=== PATIENT | female | born 1980 | race Hispanic/Latino ===

== ENCOUNTER 2017-03-30 15:28 | Inpatient (IN) | payer OTHER ==
[2017-03-30] MEDS ORDERED: HYDROmorphone 0.5 MG/0.5 ML SYRINGE ONE ×2 (15:44→15:45)
[2017-03-30] MEDS ORDERED: Dextrose 50% Abboject 50 ML SYRINGE SLOW IVP PRN (15:51)
[2017-03-30] MEDS ORDERED: Dextrose 5% in Water 1,000 ML IV PRN (15:51)
[2017-03-30] MEDS ORDERED: Adacel (T-DAP) 0.5 ML VIAL ONE (15:56)
[2017-03-30] MEDS ORDERED: diphenhydrAMINE 50 MG/ML VIAL IM PRN (15:57)
[2017-03-30] MEDS ORDERED: Promethazine HCl 25 MG/ML VIAL IM PRN (15:57)
[2017-03-30] MEDS ORDERED: diphenhydrAMINE 50 MG/ML VIAL IVP PRN (15:57)
[2017-03-30] MEDS ORDERED: HYDROmorphone 10 mg/100 ml CADD IVPB PRN (15:57)
[2017-03-30] MEDS ORDERED: diphenhydrAMINE 25 MG CAP PO PRN (15:57)
[2017-03-30] MEDS ORDERED: Naloxone HCl 0.4 mg/ml Vial IV PRN (15:57)
[2017-03-30] MEDS ORDERED: Ondansetron HCl/PF 4 MG/2 ML Vial IVP PRN (15:57)
[2017-03-30] MEDS ORDERED: Silver Sulfadiazine 1% Cream 50 GM JAR ONE (16:00)
[2017-03-30] MEDS ORDERED: Communication Order-Pharmacy FS SCH (16:00)
[2017-03-30 17:25] VITALS: BMI 29.4
--- NOTE | 2017-03-30 18:00 | HP ---
DATE OF ADMISSION: 03/30/2017 ADMITTING PHYSICIAN: Dr. Everette Tse. CHIEF COMPLAINT: Evaluation of grease cohen. HISTORY OF PRESENT ILLNESS: The patient is a 36-year-old female, 28 weeks , , who presented to the ED today suffering from cohen to her hands , abdomen, groin and right lower extremity. 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 She denies any other injury. She was taken by EMS to the [place] ED and given morphine and Zofran en route. Currently, her pain is 4/10. It is worse with movement and relieved by nothing. ER PROCEDURES: Prior to arrival, she was given 200 mL of lactated Ringer's as well as 500 mL of normal saline. Upon arrival, she was placed on a team assembly line machine operator. L&D was at the bedside to monitor both the patient and the baby. heart tones were monitored and showed no signs of distress. Total intake and output was 1000 mL input, output 0 mL PAST MEDICAL HISTORY: Significant for controlled asthma as well as heart flutter. ALLERGIES: She has no known drug allergies. FAMILY HISTORY: Father of pancreatic cancer. Mother has no significant past medical history. Brother and sister both have hypertension. STATUS: She is , all vaginal deliveries. No prior complications. No preeclampsia or eclampsia. She sees Dr. Willis here in [facility]. PAST SURGICAL HISTORY: She has had a left oophorectomy. She has also had cosmetic lip implants. SOCIAL HISTORY: She denies alcohol use. She denies smoking. She denies drug use. REVIEW OF SYSTEMS: Ten-point review of systems is negative except as mentioned in the HPI and past medical history. PHYSICAL EXAMINATION: VITAL SIGNS: Blood pressure 152/101, pulse 99, respirations 20, temperature 98.2, O2 sat 100% on room air. Repeat blood pressure 139/97. GENERAL: Adult male, who appears his stated age, in no acute distress. She appears nontoxic and not to be in pain. HEAD: She is atraumatic, normocephalic. EYES: PERRLA, EOMI. ENT: Ears: Atraumatic. Nose: Nares patent, free of discharge. Mouth: Oropharynx is pink and moist. NECK: Her neck is supple. There is no tracheal deviation. RESPIRATORY: Her breath sounds are clear to auscultation bilaterally with normal effort. CARDIOVASCULAR: She has a regular rate and rhythm, normal S1 and S2. Distal pulses 2+ bilaterally. ABDOMEN: Her abdomen appears normal for this stage of . She has an erythematous area above the umbilicus about 10 cm x 5 cm with a 1 cm tense bulla. She has no other abdominal abnormalities. heart monitor is in place. MUSCULOSKELETAL: The patient is neurovascularly intact x4 and moving all extremities. SKIN: She has multiple tense bullae across the palmar and dorsal surfaces of her hands bilaterally with an estimated surface area of 1%, combined. There is a 10 cm x 5 cm area of erythema with a single tense balloon on her abdomen as mentioned above. Her distal right lower extremity anteriorly has multiple bullae and vesicles with an estimated surface area of 7%. There are no full thickness cohen apparent. NEUROLOGIC: She has no focal deficits. Her cranial nerves II-XII are intact. Her Amy coma scale is 15. PSYCHIATRIC: She has normal mood and affect. MONITORING: heart tones are 135. Positive for movement and no signs of distress. ASSESSMENT: Partial thickness second-degree cohen covering approximately 8% of body surface area. PLAN: 1. The patient will be admitted to the [facility] for wound care and pain control. 2. Monitor fluids and electrolytes and replace as needed. 3. Monitor for signs of distress. This patient was seen and examined along with Dr. Everette Tse who agrees with the assessment and plan. [facility]ENTER[facility]onzalez
[2017-03-30] MEDS: HYDROcodone/Acetaminophen 10/325 mg Tablet PO SCH (18:18)
--- NOTE | 2017-03-30 22:40 | PRG ---
DATE OF SERVICE: 03/30/2017 SUBJECTIVE: This is a 36-year-old female, admitted earlier today for second-degree burn. Upon my ev aluation, the patient states her pain is better controlled and only having complaints of itching. OBJECTIVE: VITAL SIGNS: Reviewed and stable. The patient is resting in bed, in no acute distress. SKIN: Wounds are covered with Silvadene cream. CHEST: Breathing is nonlabored. ASSESSMENT AND PLAN: As documented in the daily progress note. Continue care as ordered. Continue to monitor. Patient may have Benadryl for itching.
--- NOTE | 2017-03-31 00:43 | CON ---
DATE OF CONSULTATION: 03/30/2017 ADMITTING PHYSICIAN: Everette Tse D.O. CONSULTING PHYSICIAN: Lon Shoemaker M.D., for [facility] Obstetric Hospitalist. REASON FOR CONSULTATION: with second-degree cohen. HISTORY OF PRESENT ILLNESS: Ms. Lety Fritz presented at approximately 15:30 to the emergency room at [facility] with Trauma Service activation secondary to second-degree cohen on her abdomen an d leg, status post grease splash with cooking. She was noted to be 28 weeks by history. Sh e denied contractions, vaginal bleeding, rupture of membranes and reported of active fetus. LOGGING WORKER HISTORY: The patient sees Dr. Kal Willis at [facility] for her pregnanc ies. She is a G4, P3 with an KASSIDY of 06/18/2017, placing her 28 weeks' gestation. She has had 3 prev ious spontaneous vaginal deliveries without complications. No history of labor. She reports she is blood type A positive. She reports that this is a male fetus. The patient was scheduled to take [address] Willis's office this week. PAST MEDICAL HISTORY: None. PAST SURGICAL HISTORY: Left salpingo-oophorectomy for dermoid with torsion. ALLERGIES: None. MEDICATIONS: Prior to admission medications include vitamins and Diclegis. SOCIAL HISTORY: Denies tobacco, alcohol or drug use. FAMILY HISTORY: Noncontributory. REVIEW OF SYSTEMS: Noncontributory. PHYSICAL EXAMINATION: GENERAL: female, in mild distress. VITAL SIGNS: Temperature 98.2, pulse 79, respirations 20 and blood pressure 121/77. HEENT: Within normal limits. LUNGS: Clear to auscultation bilaterally. HEART: Regular rate and rhythm. ABDOMEN: Soft and nontender with a fundal height of 20 cm. FHTs are 130s to 150s. PELVIC: Deferred. SKIN: The patient has second-degree cohen on her left chest, right wrist, right lower extremity and left wrist. Calculated body percent is 8% of second-degree cohen, now with Silvadene applied. IMAGING DATA: Bedside ultrasound in the ER revealed FHTs in the 130s to 140s, cephalic presentation, posterior fundal placenta, no gross abnormalities noted. Approximately, 20-minute strip was obtaine d in the ER, which was reactive without decelerations. IMPRESSION: Second-degree cohen on less than 10% of the body, incidental finding of late second trim isra . PLAN: We will continue as a technical marketing consultant with Dr. Tse's Trauma Service. I have discussed with the felisa ochoa appropriate analgesics and anti-infectives if necessary. The patient will continue on Dilaudi d INFORMATION WRITER with p.o. Tylenol as needed with Silvadene applied to cohen.
[2017-03-31] MEDS: HYDROcodone/Acetaminophen 10/325 mg Tablet PO SCH ×2 (05:51→07:24)
[2017-03-31 06:51] LABS: Anion Gap 8 mmol/L (10-20); BUN (Urea Nitrogen) 6 mg/dL (7.0-18.7); Calc. Creatinine Clearance 176 mL/min (70-130); Calcium 8.4 mg/dL (7.8-10.44); Carbon Dioxide 24 mmol/L (22-29); Chloride 106 mmol/L (98-107); Estimated GFR-MDRD Greater than 90; Glucose 81 mg/dL (70-105); Potassium 3.7 mmol/L (3.5-5.1); Sodium 134 mmol/L (136-145)
[2017-03-31] MEDS ORDERED: Silver Sulfadiazine 1% Cream 50 GM TUBE TP SCH (09:00)
[2017-03-31] MEDS ORDERED: HYDROcodone/Acetaminophen 10/325 mg Tablet PO PRN ×2 (10:31)
[2017-03-31] MEDS ORDERED: Acetaminophen 500 MG TAB PO SCH (14:45)
[2017-03-31 14:59] VITALS: BP 102/56; TEMP 98.4
--- NOTE | 2017-03-31 14:59 | PRG ---
DATE OF SERVICE: 03/31/2017 TIME OF SERVICE: 0710 SUBJECTIVE: The patient is resting comfortably. She expresses anxiety about pain control after disc harge. She reports an active fetus. She denies contractions. OBJECTIVE: Patient's vital signs are stable. She is afebrile. FHTs are 150s. No palpable contract ions are noted. The patient's cohen are covered in Silvadene. Bullous changes are noted in the burn s on her lower extremity. IMPRESSION: 28 weeks gestation, status post second-degree cohen from grease splatter. PLAN: Continue to follow alongside with Trauma Service. I do not anticipate any impact on the pregn selam. Special consideration only needs to be held for analgesics and the avoidance of nonsteroidals and antibiotics if they become necessary in the avoidance of fluoroquinolones. The patient will need to keep her scheduled followup with Dr. Kal Willis after discharge.
--- NOTE | 2017-03-31 23:08 | DIS ---
DATE OF ADMISSION: 03/30/2017 DATE OF DISCHARGE: 03/31/2017 ADMITTING PHYSICIAN: Dr. Everette Tse. DISCHARGING PHYSICIAN: Dr. Everette Tse. CHIEF COMPLAINT: Evaluation of grease cohen. HISTORY OF PRESENT ILLNESS: The patient is a 36-year-old female who is 28 weeks . She is without any prior complications of , all vaginal delivery. She presented to the ED yesterday, suffering second-degree cohen to her hands, abdomen, groin and right lower extremity, covering approximately 8% body surface area. While she is in the ED, she was placed on a poultry farm manager. L&D was at the bedside to monitor both the patient and the baby. heart tones were monitored without signs of distress. She was admitted by the Trauma Service and sent to the floor where she received pain control as well as a wound care consultation. She was transitioned off of LOCKSTITCHER this afternoon and put her on oral pain medication. Case management was able to set her up with an outpatient personnel security specialist. She was discharged in stable condition. DISCHARGE MEDICATIONS: 1. Silvadene cream 1 gram topical twice daily. 2. CitraNatal Assure combo pack, 1 package oral daily. 3. Doxylamine succinate/vitamin B6, 2 tablets oral at bedtime. 4. Tramadol 50 mg tablets, 1-2 tablets p.o. every 6 hours as needed. ACTIVITY ORDERS: Activity as tolerated. NOURISHMENT INSTRUCTIONS: Regular diet. THERAPY INSTRUCTIONS: Wound care. EQUIPMENT AND SUPPLIES: Wound care. FOLLOWUP CARE: The patient was instructed to make an appointment with [facility] outpatient wound care. Recommending 3 times a week for 2 weeks. The patient is also advised to follow up with her PCP, Dr. Kal Willis as needed. [facility]
== END 2017-03-31 18:30 | disposition home health service (06) | DRG 781 ==
LOC: ERS 15:28 → 3SW 15:51
PROVIDERS: ADMIT Surgery; ATTEND Surgery
DX: O26.893 Other specified pregnancy related conditions, third trimester (principal); T31.0 Burns involving less than 10% of body surface; Z3A.28 28 weeks gestation of pregnancy; T23.202A Burn of second degree of left hand, unspecified site, initial encounter; T21.22XA Burn of second degree of abdominal wall, initial encounter; T23.201A Burn of second degree of right hand, unspecified site, initial encounter; T24.201A Burn of second degree of unspecified site of right lower limb, except ankle and foot, initial encounter; X10.2XXA Contact with fats and cooking oils, initial encounter; Y92.89 Other specified places as the place of occurrence of the external cause
CPT/HCPCS: 36415; 59025; 80048; 90471; 90715; 96374; G0390; J1170; J1200; J2405

== ENCOUNTER 2017-04-10 10:39 | Outpatient (CLI) | payer OTHER ==
--- NOTE | 2017-04-10 17:34 | HP ---
DATE OF SERVICE: 04/10/2017 HISTORY OF PRESENT ILLNESS: Ms. Lety Fritz is a very pleasant 36-year-old who presents to [facility] for evaluation of second-degree cohen to the right lower extremity. The patient state s that the second-degree cohen of her right lower extremity are from hot oil from a fryer. The patie nt states that she suffered the second-degree cohen on 03/30/2017. The patient states that she was s een in the emergency department at [facility] for her cohen. She states that she presented to the emergency department at [facility] again yesterday and at this time, the burn of her right lower extremity was cleansed. She states that at the time of her v isit, she was also placed on a course of Keflex and referred to the Wound Center for further evaluati on and treatment. The patient states that she has been performing dressing changes of Silvadene for the second-degree burn of her right lower extremity. PAST MEDICAL HISTORY: 1. Asthma. 2. Arrhythmia. PAST SURGICAL HISTORY: Left salpingo-oophorectomy for dermoid with torsion. MEDICATIONS: 1. Diclegis. 2. Cephalexin. 3. Tramadol. ALLERGIES: No known diagnosed allergies. SOCIAL HISTORY: Negative for tobacco or ETOH use. FAMILY HISTORY: Significant for diabetes mellitus. The patient states that she has multiple relativ es on the maternal side of her family who were diagnosed with diabetes mellitus. REVIEW OF SYSTEMS: The patient has a gravid uterus with an intrauterine at 28 weeks. PHYSICAL EXAMINATION: VITAL SIGNS: Temperature 97.8, pulse 102, respirations 19, blood pressure 119/66. GENERAL: A 36-year-old female sitting on chair in examination room in no acute distress. HEENT: Normocephalic, atraumatic. NECK: No nuchal rigidity. CHEST: Clear to auscultation. CARDIOVASCULAR: Regular rate and rhythm. ABDOMEN: Gravid uterus. EXTREMITIES: Second-degree cohen of the right lower extremity are present. No burn wound cellulitis is appreciated. A dorsalis pedis pulse is palpable on the right. Edema and induration of the right lower leg are present on exam today. NEUROLOGIC: Grossly nonfocal. ASSESSMENT AND PLAN: 1. Second-degree cohen of right lower extremity. Dressing changes of Silvadene, 4 x 4s, ABDs, and K erlix will be initiated today. These dressing changes are to be performed on a daily basis after angel ansing and irrigation. The patient is to continue Keflex as previously prescribed because of the renee ma and induration of the right lower leg, which the patient states is increasing despite Keflex. Arr angements will be made for right lower extremity ultrasound to look for findings suggestive of deep v enous thrombosis. The patient reports an intrauterine of 28 weeks and reports being on bed rest. I will see Ms. Aman Fritz again in one week. The patient understands and is in agreement with the preceding treatment plan. She states she will continue Keflex as previously prescribed. 2. Asthma. 3. Arrhythmia.
== END 2017-04-10 10:40 | disposition home or self-care (01) ==
LOC: WCC 10:39
PROVIDERS: ATTEND Family Medicine
DX: T24.201D Burn of second degree of unspecified site of right lower limb, except ankle and foot, subsequent encounter (principal); X10.2XXD Contact with fats and cooking oils, subsequent encounter; J45.909 Unspecified asthma, uncomplicated; I49.9 Cardiac arrhythmia, unspecified
CPT/HCPCS: 97602; 99203; G0463

== ENCOUNTER 2017-04-10 13:25 | Outpatient (CLI) | payer OTHER ==
--- NOTE | 2017-04-10 14:29 | ULT ---
RIGHT LOWER EXTREMITY VENOUS DUPLEX EXAM: History: Right lower extremity pain, edema, and redness. FINDINGS: Real-time color doppler evaluation of the right lower extremity was performed from groin to calf. Thi s includes evaluation of the common femoral, superficial, and profunda femoral, saphenous, popliteal and trifurcation veins. This shows a patent deep venous system. There is normal compressibility and a ugmentation. Mildly prominent inguinal lymph nodes are seen but they maintain a normal renoform shape . IMPRESSION: No evidence of DVT of the right lower extremity. POS: SERGEY
== END 2017-04-10 13:26 | disposition home or self-care (01) ==
LOC: ULT 13:25
PROVIDERS: ATTEND Family Medicine
DX: I87.2 Venous insufficiency (chronic) (peripheral) (principal)

== ENCOUNTER 2017-04-17 11:03 | Outpatient (CLI) | payer OTHER ==
--- NOTE | 2017-04-17 18:08 | PRG ---
DATE OF SERVICE: 04/17/2017 HISTORY: Ms. Lety Fritz is a very pleasant 36-year-old who presents to the Wound Center for evaluation of second-degree cohen to the right lower extremity. The patient previously stated that t he second-degree cohen of her right lower extremity were from hot oil from a fryer. The patient stat ed that she suffered the second-degree cohen on 03/30/2017. The patient stated that she was seen in the Emergency Department at [facility] for her cohen. She stated that she pre sented to the Emergency Department at [facility] again on 04/09/2017, and at t his time the burn of her right lower extremity with cleansed. She stated that at the time of her vis it, she was also placed on a course of Keflex and referred to the Wound Center for further evaluation and treatment. After being seen in the Wound Center, the patient was instructed to perform dressing changes of Silvadene and gauze on a daily basis after cleansing and irrigation. Because of edema an d induration of the right lower leg which had increased, despite treatment with Keflex. Ultrasound t o look for findings suggestive of deep venous thrombosis was obtained, which showed no evidence of DV T of the right lower extremity. PHYSICAL EXAMINATION: VITAL SIGNS: Temperature 97.5, pulse 72, respirations 18, blood pressure 115/78. EXTREMITIES: The second-degree cohen of the right lower extremity are healing without complications or any signs of infection. No burn wound cellulitis is appreciated. Less edema of the right lower l eg is present than at the time of the patient's visit on 04/10/2017. ASSESSMENT AND PLAN: 1. Second-degree cohen of right lower extremity. Dressing changes of Silvadene, 4 x 4's, Kerlix, an d an Ludin bandage are to be performed on a daily basis after cleansing and irrigation. The patient is to continue Keflex as previously prescribed. I will see Ms. Aman Fritz again in one week. 2. Asthma. 3. Arrhythmia.
== END 2017-04-17 11:04 | disposition home or self-care (01) ==
LOC: WCC 11:03
PROVIDERS: ATTEND Family Medicine
DX: T24.201D Burn of second degree of unspecified site of right lower limb, except ankle and foot, subsequent encounter (principal); J45.909 Unspecified asthma, uncomplicated; I49.9 Cardiac arrhythmia, unspecified

== ENCOUNTER 2018-10-29 10:09 | Outpatient (CLI) | payer OTHER ==
--- NOTE | 2018-10-29 11:25 | ULT ---
EXAM: OB ultrasound COMPARISON: None HISTORY: female. Evaluate size, dates, and anatomy. TECHNIQUE: Multiplanar grayscale and color Doppler images were obtained in a transabdominal ult rasound. FINDINGS: There is a single live intrauterine with heart rate of 139 bpm. A survey wa s performed which is unremarkable. The head, intracranial structures, heart, stomach, kidneys, umbilical cord, umbilical cord insertion, spine, face, and extremities were evaluated and were unrema rkable. Estimated weight is 737 g. Average age of the fetus based off today's examination is 24 weeks 6 days. BPD 6.04 cm -- 24 weeks 5 days HC 23.17 cm -- 25 weeks 2 days AC 20.83 cm -- 25 weeks 3 days FL 4.57 cm -- 24 weeks 0 days The placenta is posterior in location without focal abnormality. Amniotic fluid volume is subjectivel y within normal limits.. The cervix is normal in length. There is no evidence of placenta previa. IMPRESSION: Single live intrauterine with estimated age of 24 weeks 6 days.
== END 2018-10-29 10:10 | disposition home or self-care (01) ==
LOC: BICULT 10:09
PROVIDERS: ATTEND Family Medicine
DX: O09.522 Supervision of elderly multigravida, second trimester (principal); Z3A.24 24 weeks gestation of pregnancy
CPT/HCPCS: 76805

== ENCOUNTER 2019-02-10 10:43 | Inpatient (IN) | payer OTHER ==
[~2019-02-10 10:43] MED LIST: Bupivacaine 0.25% HCL 30 ML VIAL ONE
[2019-02-10] MEDS: Lactated Ringer's 1,000 ML IV SCH ×3 (11:45→15:21)
[2019-02-10] MEDS ORDERED: Diphenoxylate HCl/Atropine Tablet PO PRN (11:58)
[2019-02-10] MEDS ORDERED: NS / Oxytocin 40 units/1000ml 1,000 ML IV PRN (11:58)
[2019-02-10] MEDS ORDERED: Promethazine HCl 25 MG/ML VIAL IM PRN ×3 (11:58→20:58)
[2019-02-10] MEDS ORDERED: Ibuprofen 800 MG TAB PO PRN (11:58)
[2019-02-10] MEDS ORDERED: Methylergonovine 0.2 MG/ML VIAL IM PRN (11:58)
[2019-02-10] MEDS ORDERED: Misoprostol 200 MCG TAB PR PRN (11:58)
[2019-02-10] MEDS ORDERED: Butorphanol Tartrate 1 MG/ML VIAL SLOW IVP PRN (11:58)
[2019-02-10] MEDS ORDERED: hydrALAZINE 20 MG/ML VIAL SLOW IVP PRN ×2 (11:58→20:58)
[2019-02-10] MEDS ORDERED: Ondansetron PF 4 MG/2 ML Vial IVP PRN ×3 (11:58→20:58)
[2019-02-10] MEDS ORDERED: HYDROcodone/Acetaminophen 5/325 mg Tablet PO PRN ×2 (11:58→20:58)
[2019-02-10] MEDS ORDERED: Carboprost 250 MCG/ML AMP IM PRN (11:58)
[2019-02-10] MEDS ORDERED: Lidocaine 1% (PF) 30 ML VIAL SC PRN (11:58)
[2019-02-10] MEDS ORDERED: NS w/ Oxytocin 10 units 500 ML IV SCH ×2 (12:00)
[2019-02-10 12:03] VITALS: BMI 34.9
[2019-02-10 12:13] LABS: Hemoglobin 9.5 g/dL (12.0-16.0); Mean Corpuscular HGB CONC 32.4 g/dL (32.0-36.0); Mean Corpuscular Hemoglobin 22.8 pg (27.0-31.0); Mean Corpuscular Volume 70.3 fL (78.0-98.0); Mean Platelet Volume 10.5 fL (7.4-10.4); Platelet Count 319 thou/uL (130-400); RBC Distribution Width 17.4 % (11.5-14.5); Red Blood Cell (RBC) Count 4.17 mill/uL (4.20-5.40); White Blood Cell (WBC) Count 10.5 thou/uL (4.8-10.8)
[2019-02-10] MEDS ORDERED: Fentanyl 4 mcg/Bup 0.1% Cadd 100 ML ONE (12:19)
[2019-02-10] MEDS ORDERED: Lidocaine 1% (PF) 30 ML VIAL ONE (12:19)
[2019-02-10] MEDS ORDERED: NS / Oxytocin 40 units/1000ml 1,000 ML ONE (12:20)
[2019-02-10] MEDS ORDERED: Fentanyl 100 MCG/2 ML VIAL ONE (12:36)
[2019-02-10 12:58] LABS: HBSAg Index 0.32 S/CO (0-0.99); Hep B Surf Ag Non-Reactive S/CO (NonReactive)
[2019-02-10 13:01] LABS: Syphilis Antibody Nonreactive (Nonreactive); Syphilis Antibody Index 0.03 S/CO (<1.00 Non-Reactive)
[2019-02-10] MEDS ORDERED: diphenhydrAMINE 50 MG/ML VIAL IVP PRN (13:56)
[2019-02-10] MEDS ORDERED: ePHEDrine/0.9% NaCl/PF SYRINGE 50 mg/10 ml SLOW IVP PRN (13:56)
[2019-02-10] MEDS ORDERED: Acetaminophen 325 MG TAB PO PRN (13:56)
[2019-02-10] MEDS ORDERED: Lactated Ringer's 500 ML IV PRN (13:56)
[2019-02-10] MEDS ORDERED: Naloxone HCl 0.4 mg/ml Vial IVP PRN ×2 (13:56)
[2019-02-10] MEDS ORDERED: Communication Order-Pharmacy FS SCH (14:00)
[2019-02-10] MEDS ORDERED: Fentanyl 4 mcg/Bupivacaine 0.1% Cassette 100 ML EPIDURAL SCH (14:00)
[2019-02-10] MEDS ORDERED: NS / Oxytocin 40 units/1000ml 1,000 ML IV SCH (20:58)
[2019-02-10] MEDS ORDERED: Lanolin Ointment 7 GM TUBE TOP PRN (20:58)
[2019-02-10] MEDS ORDERED: Benzocaine-Menthol 82.5 ML CAN TOP PRN (20:58)
[2019-02-10] MEDS ORDERED: Bisacodyl 10 MG SUPP PR PRN (20:58)
[2019-02-10] MEDS ORDERED: Milk Of Magnesia 30 ML UDCUP PO PRN (20:58)
[2019-02-10] MEDS ORDERED: diphenhydrAMINE 25 MG CAP PO PRN (20:58)
[2019-02-10] MEDS: Docusate Calcium (SURFAK) 240 MG CAP PO SCH (21:15)
[2019-02-10] MEDS ORDERED: Ferrous Sulfate 325 MG TAB PO SCH (21:15)
[2019-02-10] MEDS: HYDROcodone/Acetaminophen 5/325 mg Tablet PO PRN (21:28)
[2019-02-10] MEDS: Ibuprofen 800 MG TAB PO SCH (23:22)
[2019-02-11] MEDS: Ibuprofen 800 MG TAB PO SCH ×2 (04:12→14:25)
[2019-02-11 05:31] LABS: Hemoglobin 8.7 g/dL (12.0-16.0); Mean Corpuscular HGB CONC 31.7 g/dL (32.0-36.0); Mean Corpuscular Hemoglobin 22.5 pg (27.0-31.0); Mean Corpuscular Volume 71.1 fL (78.0-98.0); Mean Platelet Volume 9.8 fL (7.4-10.4); Platelet Count 293 thou/uL (130-400); RBC Distribution Width 16.3 % (11.5-14.5); Red Blood Cell (RBC) Count 3.86 mill/uL (4.20-5.40); White Blood Cell (WBC) Count 12.2 thou/uL (4.8-10.8)
[2019-02-11] MEDS: HYDROcodone/Acetaminophen 5/325 mg Tablet PO PRN ×4 (06:10→18:13)
[2019-02-11] MEDS ORDERED: Prenatal Vitamin 1 TAB PO SCH (09:00)
[2019-02-11] MEDS ORDERED: Adacel (T-DAP) 0.5 ML SYRINGE IM ONE (09:00)
[2019-02-11] MEDS: Ferrous Sulfate 325 MG TAB PO SCH ×2 (10:09→18:12)
[2019-02-11] MEDS: Docusate Calcium (SURFAK) 240 MG CAP PO SCH (10:09)
[2019-02-11] MEDS ORDERED: FLU VACC QS2019-20(6MOS UP)/PF 60 MCG/0.5 ML SYRINGE IM ONE (12:30)
[2019-02-11 17:45] VITALS: BP 145/78; TEMP 98.6
== END 2019-02-11 21:05 | disposition home or self-care (01) | DRG 807 ==
LOC: L&D 10:43 → 3SW 20:47
PROVIDERS: ADMIT Family Medicine; ATTEND Family Medicine
PROC: 10E0XZZ Delivery of Products of Conception, External Approach (ICD-10-PCS; principal; 2019-02-10)
PROC: 10907ZC Drainage of Amniotic Fluid, Therapeutic from Products of Conception, Via Natural or Artificial Opening (ICD-10-PCS; 2019-02-10)
DX: O80 Encounter for full-term uncomplicated delivery (principal); Z37.0 Single live birth; Z3A.38 38 weeks gestation of pregnancy
CPT/HCPCS: 36415; 51702; 85027; 86780; 86850; 86900; 86901; 87340; J2001; J2590; J3010; S0020

== ENCOUNTER 2019-03-19 09:10 | Outpatient (CLI) | payer MEDICAID, OTHER ==
--- NOTE | 2019-03-19 11:05 | RAD ---
CHEST TWO VIEWS: HISTORY: Post exam. Positive TB skin test. FINDINGS: The lung martin are clear. No infiltrate. The heart and mediastinum appear normal. The osseous struct ures appear normal. There is no evidence of primary or secondary TB. IMPRESSION: Unremarkable chest. POS: C
== END 2019-03-19 09:11 | disposition home or self-care (01) ==
LOC: BICRAD 09:10
PROVIDERS: ATTEND Family Medicine
DX: Z39.2 Encounter for routine postpartum follow-up (principal)
CPT/HCPCS: 71046

== ENCOUNTER 2020-02-22 10:25 | Outpatient (CLI) | payer OTHER ==
--- NOTE | 2020-02-22 11:04 | MMO ---
Bilateral MAMMO Bilat Screen DDI. CLINICAL HISTORY: Patient is 39 years old and is seen for screening. The patient has no family history of breast cancer. The patient has no personal history of cancer. VIEWS: The views performed were: bilateral craniocaudal and bilateral mediolateral oblique. This study has been interpreted with the assistance of computer-aided detection. MAMMOGRAM FINDINGS: There are scattered fibroglandular densities. There are no suspicious masses, suspicious calcifications, or new areas of architectural distortion. IMPRESSION: THERE IS NO MAMMOGRAPHIC EVIDENCE OF MALIGNANCY. A ROUTINE FOLLOW-UP MAMMOGRAM IN 1 YEAR IS RECOMMENDED. ACR BI-RADS Category 1 - Negative MAMMOGRAPHY NOTE: 1. A negative mammogram report should not delay a biopsy if a dominant of clinically suspicious mass is present. 2. Approximately 10% to 15% of breast cancers are not detected by mammography. 3. Adenosis and dense breasts may obscure an underlying neoplasm. Reported by: ALEXSANDRA LÓPEZ MD Electonically Signed: [id number]
== END 2020-02-22 10:26 | disposition home or self-care (01) ==
LOC: BICMAMMO 10:25
PROVIDERS: ATTEND Family Medicine
DX: Z12.31 Encounter for screening mammogram for malignant neoplasm of breast (principal)
CPT/HCPCS: 77067

== ENCOUNTER 2022-02-28 10:29 | Emergency (ER) | payer OTHER ==
[~2022-02-28 10:29] MED LIST changes: -Bupivacaine 0.25% HCL 30 ML VIAL ONE; +Iopamidol-370 76% 500 ML 1 ML ONE
[2022-02-28] MEDS ORDERED: Fentanyl 100 MCG/2 ML VIAL ONE (11:43)
[2022-02-28 11:59] LABS: #Eosinphils 0.1 thou/uL (0.0-0.7); #Lymphocytes 1.4 thou/uL (1.20-3.40); #Monocytes 0.6 thou/uL (0.11-0.59); #Neutrophils 9.5 thou/uL (1.40-6.50); %Basophils 0.4 % (0.0-1.0); %Eosinophils 1.3 % (0.0-10.0); %Lymphocytes 11.9 % (21.0-51.0); %Neutrophils 81.5 % (42.0-75.0); Mean Corpuscular HGB CONC 33.9 g/dL (32.0-36.0); Mean Corpuscular Hemoglobin 29.4 pg (27.0-31.0); Mean Corpuscular Volume 86.8 fl (78.0-98.0); Mean Platelet Volume 8.6 fL (7.4-10.4); Platelet Count 345 10x3/uL (130-400); RBC Distribution Width 13.1 % (11.5-14.5); Red Blood Cell (RBC) Count 4.75 mill/uL (4.20-5.40); White Blood Cell (WBC) Count 11.7 10x3/uL (4.8-10.8)
[2022-02-28 12:24] LABS: ALT (SGPT) 8 U/L (8-55); AST (SGOT) 12 U/L (5-34); Alkaline Phosphatase 86 U/L (40-110); Anion Gap 11 mmol/L (10-20); BUN (Urea Nitrogen) 10 mg/dL (7.0-18.7); Bilirubin, Total 0.6 mg/dL (0.2-1.2); CK (CPK) 51 U/L (29-168); Calc. Creatinine Clearance 0 mL/min (70-130); Calcium 9.1 mg/dL (7.8-10.44); Carbon Dioxide 25 mmol/L (22-29); Chloride 104 mmol/L (98-107); Estimated GFR 101; Globulin 3.4 g/dL (2.4-3.5); Glucose 111 mg/dL (70-105); Lipase 14 U/L (8-78); Potassium 4.3 mmol/L (3.5-5.1); Protein, Total 7.4 g/dL (6.0-8.3); Sodium 136 mmol/L (136-145)
[2022-02-28 12:48] LABS: SARS-CoV-2 NAA Rapid Test Not Detected (NotDetected)
[2022-02-28] MEDS ORDERED: Morphine 4 MG/ML VIAL ONE (13:45)
[2022-02-28] MEDS ORDERED: Ketorolac Tromethamine 30 MG/ML VIAL ONE (13:45)
[2022-02-28] MEDS ORDERED: LORazepam 2 MG/ML SYR.(CARPUJECT) ONE (13:46)
== END 2022-02-28 15:26 | disposition home or self-care (01) ==
LOC: ERS 10:29
DX: M54.12 Radiculopathy, cervical region (principal); R07.89 Other chest pain; D72.829 Elevated white blood cell count, unspecified; Z20.822 Contact with and (suspected) exposure to COVID-19
CPT/HCPCS: 36415; 71275; 72141; 74174; 80053; 82550; 83690; 84484; 85025; 93005; 96374; 96375; J1885; J2060; J2270; J3010; Q9967; U0002

== ENCOUNTER 2023-04-25 15:31 | Outpatient (CLI) | payer BC | END 2023-04-25 15:32 | disposition home or self-care (01) | LOC: BICULT 15:31 | PROVIDERS: ATTEND Family Medicine | DX: R10.2 Pelvic and perineal pain (principal); D25.9 Leiomyoma of uterus, unspecified | CPT/HCPCS: 76856 ==